=== PATIENT | female | born 2000 | race African-American/Black ===

== ENCOUNTER 2024-11-05 12:47 | Emergency (ER) | payer OTHER ==
[~2024-11-05] VITALS: Ht 162.6 cm; Wt 72.9 kg
[2024-11-05 12:51] VITALS: BP 138/69; TEMP 97.4; O2SAT 100
== END 2024-11-05 15:28 | disposition left against medical advice (07) ==
LOC: M ED 12:47
DX: Z53.21 Procedure and treatment not carried out due to patient leaving prior to being seen by health care provider (principal)